=== PATIENT | female | born 1970 ===

== ENCOUNTER 2018-06-21 16:07 | Emergency (ER) | payer OTHER ==
[2018-06-21] MEDS ORDERED: TDAP Vaccine 0.5 mL Syr IM ONE (16:24)
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
[2018-06-21 16:34] VITALS: BMI 30.2
[2018-06-21 16:45] VITALS: RESP 16; TEMP 98.1
[2018-06-21 18:29] VITALS: BP 132/80; PULSE 62; O2SAT 100
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
== END 2018-06-21 18:49 | disposition home or self-care (01) ==
LOC: ED 16:07
DX: S80.12XA Contusion of left lower leg, initial encounter (principal); S39.012A Strain of muscle, fascia and tendon of lower back, initial encounter; S60.414A Abrasion of right ring finger, initial encounter; W22.8XXA Striking against or struck by other objects, initial encounter; Y93.55 Activity, bike riding
CPT/HCPCS: 72110; 73130; 73552; 96372; 99283; J1885

== ENCOUNTER 2018-10-18 15:11 | Emergency (ER) | payer MEDICAID, OTHER ==
[2018-10-18 15:11] VITALS: BMI 30.2
[2018-10-18 15:29] VITALS: RESP 18
[2018-10-18] MEDS ORDERED: cefTRIAXone (Rocephin) 250 mg Inj IM STA (16:44)
[2018-10-18 17:21] LABS: PH,URINE 6.5 (4.7-8.0); URINE BILIRUBIN NEGATIVE (NEGATIVE); URINE BLOOD MODERATE (NEGATIVE); URINE GLUCOSE (UA) >=1000 mg/dL (NEGATIVE); URINE LEUKOCYTE ESTERASE NEGATIVE Leu/uL (NEGATIVE); URINE PROTEIN NEGATIVE mg/dL (<30 mg/dL); URINE UROBILINOGEN 0.2 E.U./dL (<1 E.U./dL)
[2018-10-18 17:24] LABS: URINE APPEARANCE CLEAR (CLEAR); URINE COLOR YELLOW (YELLOW)
[2018-10-18 17:25] VITALS: BP 152/97; PULSE 93; TEMP 98.1; O2SAT 99
[2018-10-18 18:09] LABS: URINE BACTERIA SMALL /hpf; URINE WBC 0 - 2 /hpf (0-6)
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
== END 2018-10-18 18:45 | disposition home or self-care (01) ==
LOC: ED 15:11
DX: N89.8 Other specified noninflammatory disorders of vagina (principal)
CPT/HCPCS: 81001; 81025; 87491; 87591; 96372; 99283; J0696

== ENCOUNTER 2018-12-23 17:25 | Emergency (ER) | payer OTHER ==
[2018-12-23 17:51] VITALS: RESP 18; BMI 29.9
[2018-12-23] MEDS ORDERED: Sodium Chloride 0.9% 1,000 ML IV STA (17:51)
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
[2018-12-23 18:21] LABS: BASO # 0.03 K/mm3 (0.0-2.0); BASO % 0.4 % (0.0-3.0); EOS # 0.1 (0.0-0.7); EOS % 1.7 % (1.5-5.0); HEMOGLOBIN 15.8 g/dL (12.0-16.0); LYMPH # 3.2 (1.2-3.4); LYMPH % 39.8 % (22.0-35.0); MEAN CELL VOLUME 90.9 fl (80.0-105.0); MEAN CORPUSCULAR HEMOGLOBIN 30.4 pg (25.0-35.0); MEAN CORPUSCULAR HGB CONC 33.5 g/dl (31.0-37.0); MEAN PLATELET VOLUME 12.1 fl (7.0-11.0); MONO # 0.3 (0.1-0.6); MONO % 4.1 % (1.0-6.0); RBC 5.19 10^6/uL (3.5-6.1); RED CELL DISTRIBUTION WIDTH 12.7 % (11.5-14.5)
[2018-12-23 18:34] LABS: ALB/GLOB RATIO 1.1 (1.1-1.8); ALBUMIN 4.5 g/dL (3.0-4.8); ALT/SGPT 77 U/L (7-56); AST/SGOT 44 U/L (14-36); BLOOD UREA NITROGEN 18 mg/dL (7-21); CALCIUM 9.8 mg/dL (8.4-10.5); GFR NON-AFRICAN AMERICAN > 60
[2018-12-23] MEDS ORDERED: Insulin Regular 1 UNITS/0.01 ML ML SC STA (18:42)
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
[2018-12-23 20:49] VITALS: BP 105/69; PULSE 65; O2SAT 96
[2018-12-23 20:50] VITALS: TEMP 98
== END 2018-12-23 20:25 | disposition home or self-care (01) ==
LOC: ED 17:25
DX: E11.65 Type 2 diabetes mellitus with hyperglycemia (principal); I10 Essential (primary) hypertension
CPT/HCPCS: 80053; 82948; 83735; 85025; 96360; 96372; 99285; J7030